=== PATIENT | male | born 1990 | race Caucasian/White ===

== ENCOUNTER 2016-08-25 17:28 | Observation (INO) | payer OTHER ==
[~2016-08-25] VITALS: Ht 193 cm; Wt 193.4 kg
[2016-08-25] MEDS ORDERED: RANITIDINE HCL300 MG PO (19:55)
[2016-08-25] MEDS ORDERED: ZYRTEC10 M2 PO (19:56)
[2016-08-26 05:20] LABS: HEMOGLOBIN 13.9 gm/dl (14.0-17.5); RED BLOOD COUNT 5.12 M/UL (4.20-5.50)
[2016-08-26 05:46] LABS: BUN/CREATININE RATIO 9 (0-10)
[2016-08-27] MEDS ORDERED: LOVENOX SY40 MG/0.4 SQ (13:12)
[2016-08-27] MEDS ORDERED: PERCOCET 5/325 T1 EA PO (13:12)
== END 2016-08-27 15:15 | disposition home or self-care (01) ==
LOC: M/S 17:28
PROVIDERS: ADMIT Orthopaedic Surgery
PROC: 0QSJ04Z Reposition Right Fibula with Internal Fixation Device, Open Approach (ICD-10-PCS; principal; 2016-08-25)
PROC: 0QSG04Z Reposition Right Tibia with Internal Fixation Device, Open Approach (ICD-10-PCS; 2016-08-25)
DX: S82.841A Displaced bimalleolar fracture of right lower leg, initial encounter for closed fracture (principal); S93.431A Sprain of tibiofibular ligament of right ankle, initial encounter; K21.9 Gastro-esophageal reflux disease without esophagitis; E66.9 Obesity, unspecified; Z68.43 Body mass index [BMI] 50.0-59.9, adult; Z82.49 Family history of ischemic heart disease and other diseases of the circulatory system; Z79.891 Long term (current) use of opiate analgesic; Z79.899 Other long term (current) drug therapy; W01.0XXA Fall on same level from slipping, tripping and stumbling without subsequent striking against object, initial encounter; Y93.01 Activity, walking, marching and hiking
CPT/HCPCS: 36415; 73610; 76000; 80048; 85027; 97530; C1713; G0378; G0379; J0690; J1650; J2250; J2270; J2405; J2795; J3010; J7120